=== PATIENT | male | born 1985 | race American Indian/Alaskan Native ===

== ENCOUNTER 2016-09-03 03:34 | Emergency (ER) | payer SELFPAY ==
[2016-09-03 04:24] LABS: Basophils % (Auto) 0.4 % (0.0-1.8); Eosinophils % (Auto) 0.2 % (0.0-4.3); Hematocrit 41.2 % (35.5-45.6); Hemoglobin 14.5 gm/dl (11.8-15.2); Mean Corpuscular HGB Conc 35 % (32-34); Mean Corpuscular Hemoglobin 35 pg (28-32); Mean Corpuscular Volume 100 fl (84-94); Platelet Count 171 K/mm3 (140-440); Red Blood Count 4.13 M/mm3 (3.65-5.03); Red Cell Distribution Width 13.3 % (13.2-15.2); White Blood Count 15.6 K/mm3 (4.5-11.0)
[2016-09-03 04:41] LABS: Anion Gap 23 mmol/L; Blood Urea Nitrogen 9 mg/dL (9-20); Calcium 9.6 mg/dL (8.4-10.2); Carbon Dioxide 21 mmol/L (22-30); Chloride 89.8 mmol/L (98-107); Glucose 115 mg/dL (75-100); Potassium 4.3 mmol/L (3.6-5.0); Sodium 129 mmol/L (137-145)
--- NOTE | 2016-09-03 05:36 | XRay Report ---
FINAL REPORT EXAM: XR CHEST ROUTINE 2V HISTORY: SOB/CHEST PAIN TECHNIQUE: Chest, PA and lateral PRIORS: None. FINDINGS: The heart size is normal. Mediastinal contours are normal. Pulmonary vasculature is not congested. There is some infiltrate versus atelectasis at the left lung base peripherally. Right lung is clear. There are no pleural effusion seen. There is no evidence of pneumothorax. IMPRESSION: Possible small infiltrate versus atelectasis at left base.
[2016-09-03] MEDS ORDERED: TYLENOL PO ONE (07:05)
[2016-09-03] MEDS ORDERED: ROCEPHIN/NS 1 GM/50 ML 1 GM/50 ML BAG IV ONE (08:11)
[2016-09-03] MEDS ORDERED: TORADOL IV ONE (08:12)
[2016-09-03] MEDS ORDERED: NACL 0.9% 1000 ML 1,000 ML IV ONE (08:12)
[2016-09-03] MEDS ORDERED: DILAUDID IV ONE (08:12)
--- NOTE | 2016-09-03 08:18 | Emergency Department Report ---
ED Chest Pain HPI - General Chief Complaint: Chest Pain Stated Complaint: CHEST PAIN Time Seen by Provider: 09/03/16 08:05 Source: patient Mode of arrival: Ambulatory Limitations: No Limitations - History of Present Illness Initial Comments: 31-year-old male with a past medical history asthma presents to the hospital complaining of left-sided chest pain 2 days. Pain is sharp, intermittent, worse with deep inspiration, cough, movement, and palpation. Pain is moderate to severe in intensity. Patient taking ibuprofen and aspirin with minimal relief. Patient reports occasional dry cough but denies fever, travel, calf tenderness or edema. Severity scale (0 -10): 10 - Related Data Previous Rx's Medication Instructions Recorded Last Taken Type Azithromycin [Zithromax Z-FRANDY] 1 mg PO DAILY 5 Days 09/03/16 Unknown Rx HYDROcodone/APAP 5-325 [Pala 1 each PO Q6HR PRN #20 tablet 09/03/16 Unknown Rx 5/325] Ibuprofen [Motrin] 600 mg PO Q8H PRN #30 tablet 09/03/16 Unknown Rx Allergies Allergy/AdvReac Type Severity Reaction Status Date / Time No Known Allergies Allergy Verified 09/03/16 03:40 Heart Score - HEART Score History: Slightly suspicious EKG: Normal Age: < 45 Risk factors: No known risk factors Troponin: < normal limit HEART Score: 0 ED Review of Systems ROS: Stated complaint: CHEST PAIN Other details as noted in HPI Comment: All other systems reviewed and negative Other: Constitutional: No fevers chills Eyes: No eye pain visual changes ENT: No ear pain or throat pain Neck: Denies pain Respiratory: Denies wheezing shortness of breath Cardiovascular: Denies palpitations, syncope GI: Denies abdominal pain, nausea, vomiting, diarrhea : Denies dysuria Musculoskeletal: Denies back pain, joint swelling Skin: Denies rash, lesions, erythema Neurologic: Denies headache, numbness, weakness Psychiatric: Denies suicidal ideation, hallucinations ED Past Medical Hx - Past Medical History Previous Medical History?: Yes Hx Asthma: Yes - Surgical History Past Surgical History?: No - Social History Smoking Status: Current Every Day Smoker Substance Use Type: Alcohol, Marijuana - Medications Home Medications: Home Medications Medication Instructions Recorded Confirmed Last Taken Type Azithromycin [Zithromax Z-FRANDY] 1 mg PO DAILY 5 Days 09/03/16 Unknown Rx HYDROcodone/APAP 5-325 [Pala 1 each PO Q6HR PRN #20 tablet 09/03/16 Unknown Rx 5/325] Ibuprofen [Motrin] 600 mg PO Q8H PRN #30 tablet 09/03/16 Unknown Rx ED Physical Exam - General Limitations: No Limitations - Other Other exam information: General: No limitations, patient is alert in no acute distress Head exam: Atraumatic, normocephalic Eyes exam: Normal appearance, pupils equal reactive to light, extraocular movements intact ENT: Moist mucous membrane, normal oropharynx Neck exam: Normal inspection, full range of motion, no meningismus nontender Respiratory exam: Clear to auscultation bilateral, no wheezes, rales, crackles. Left lower thoracic tenderness to palpation. Patient splinting when he breathes Cardiovascular: Normal rate and rhythm Abdomen: Soft, nondistended, and nontender, with normal bowel sounds, no rebound, or guarding Extremity: Full range of motion normal inspection no deformity, no calf tenderness or edema Back: Normal Inspection, full range of motion, no tenderness Neurologic: Alert, oriented x3, cranial nerves intact, no motor or sensory deficit Psychiatric: normal affect, normal mood Skin: Warm, dry, intact ED Course Vital Signs 09/03/16 09/03/16 09/03/16 03:41 08:53 09:00 Temperature 98.8 F 98.8 F Pulse Rate 64 67 Respiratory 22 18 19 Rate Blood Pressure 140/89 Blood Pressure 134/82 [Left] O2 Sat by Pulse 98 98 98 Oximetry - Reevaluation(s) Reevaluation #1: 09/03/16 08:17 Meds ordered for pain IV fluids hyponatremia 09/03/16 10:23 sx improved - Consultations Consultation #1: 09/03/16 10:[address] 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 Recommends follow-up on Wednesday ROSA score - Rosa Score Age > 65: (0) No Aspirin use within the Past 7 Days: (0) No 3 or more CAD Risk Factors: (0) No 2 or more Angina events in past 24 hrs: (0) No Known CAD with more than 50% Stenosis: (0) No Elevated Cardiac Markers: (0) No ST Deviation Greater than 0.5mm: (0) No ROSA Score: 0 ED Medical Decision Making - Lab Data Result diagrams: 09/03/16 04:01 09/03/16 04:01 Lab Results 09/03/16 09/03/16 09/03/16 Range/Units 04:01 04:01 08:17 WBC 15.6 H (4.5-11.0) K/mm3 RBC 4.13 (3.65-5.03) M/mm3 Hgb 14.5 (11.8-15.2) gm/dl Hct 41.2 (35.5-45.6) % MCV 100 H (84-94) fl MCH 35 H (28-32) pg MCHC 35 H (32-34) % RDW 13.3 (13.2-15.2) % Plt Count 171 (140-440) K/mm3 Lymph % (Auto) 6.1 L (13.4-35.0) % [place] % (Auto) 9.6 H (0.0-7.3) % Eos % (Auto) 0.2 (0.0-4.3) % Baso % (Auto) 0.4 (0.0-1.8) % Lymph # 0.9 L (1.2-5.4) K/mm3 [place] # 1.5 H (0.0-0.8) K/mm3 Eos # 0.0 (0.0-0.4) K/mm3 Baso # 0.1 (0.0-0.1) K/mm3 Seg Neutrophils % 83.7 H (40.0-70.0) % Seg Neutrophils # 13.1 H (1.8-7.7) K/mm3 D-Dimer 483.38 H (0-234) ng/mlDDU Sodium 129 L (137-145) mmol/L Potassium 4.3 (3.6-5.0) mmol/L Chloride 89.8 L (98-107) mmol/L Carbon Dioxide 21 L (22-30) mmol/L Anion Gap 23 mmol/L BUN 9 (9-20) mg/dL Creatinine 0.6 L (0.8-1.5) mg/dL Estimated GFR > 60 ml/min BUN/Creatinine Ratio 15.00 % Glucose 115 H (75-100) mg/dL Calcium 9.6 (8.4-10.2) mg/dL Troponin T < 0.010 (0.00-0.029) ng/mL - EKG Data -: EKG Interpreted by Me (sinus rate [address] elevation CA or T inversions) - EKG Data When compared to previous EKG there are: previous EKG unavailable - Radiology Data Radiology results: report reviewed Chest x-ray: Possible small infiltrate versus atelectasis left base CT angiogram chest: No evidence of PE. Pleural-based left lower lobe consolidation which is probably inflammatory. However, this should be followed until clear. Evidence of hepatic steatosis with partial imaging of the liver. - Medical Decision Making Other differential: Pneumothorax Plan discharge patient home with treatment for pneumonia and pain. Follow-up with pulmonology for Wednesday will be encouraged. - Differential Diagnosis PE, pleurisy, costochondritis, chest wall pain, pneumonia, pleural effusion Critical Care Time: No Critical care attestation.: If time is entered above; I have spent that time in minutes in the direct care of this critically ill patient, excluding procedure time. ED Disposition Clinical Impression: Left lower lobe pneumonia, Hyponatremia Disposition: TO HOME OR SELFCARE Is pt being admited?: No Does the pt Need Aspirin: No Condition: Stable Instructions: Community-acquired Pneumonia (ED), Hyponatremia (ED) Additional Instructions: Take medications as prescribed. It is very important that you follow up with a lung doctor for further evaluation as discussed. Use the good Rx card provided to make your medications more affordable. Please return if symptoms worsen. Prescriptions: Azithromycin [Zithromax Z-FRANDY] 1 mg PO DAILY 5 Days HYDROcodone/APAP 5-325 [Pala 5/325] 1 each PO Q6HR PRN #20 tablet PRN Reason: Pain Ibuprofen [Motrin] 600 mg PO Q8H PRN #30 tablet PRN Reason: Pain Referrals: [facility] [Provider Group] - 3-5 Days VIRGILIO SANTOYO MD [Staff Physician] - 09/07/16 Time of Disposition: 10:23
[2016-09-03] MEDS ORDERED: ZITHROMAX 500 MG in NACL 0.9% 250ML 250 ML IV ONE (09:00)
[2016-09-03] MEDS ORDERED: NACL ONE (09:01)
--- NOTE | 2016-09-03 09:38 | Cat Scan Report ---
CT angiography of the chest with 3-D reconstructed images. History: Left chest pain elevated d-dimer. Findings: There is no evidence of pulmonary emboli. There is a somewhat triangle shaped consolidation in the posterolateral aspect of the left lower lobe extending to the pleural surface. There is no pleural fluid. Minimal linear atelectasis is seen in the right lower lobe. The upper lobes are clear. Images which include the upper abdomen demonstrate diffuse hypodensity of the liver consistent with hepatic steatosis. Impression: 1. No evidence of pulmonary emboli 2. Pleural-based left lower lobe consolidation which is probably inflammatory. However, this should be followed up until clear. 3. Evidence of hepatic steatosis with partial imaging of the liver.
[2016-09-03 10:35] VITALS: BP 108/65
== END 2016-09-03 11:20 | disposition home or self-care (01) ==
LOC: ED 03:34
DX: J18.9 Pneumonia, unspecified organism (principal); E87.1 Hypo-osmolality and hyponatremia; J45.909 Unspecified asthma, uncomplicated; F17.200 Nicotine dependence, unspecified, uncomplicated; F12.10 Cannabis abuse, uncomplicated
CPT/HCPCS: 36415; 71020; 71275; 80048; 84484; 85025; 85379; 87040; 93005; 93010; 96361; 96365; 96375; 99285; J0456; J0696; J1170; J1885; J7030; J7050; Q9967